=== PATIENT | female | born 1985 | race Caucasian/White ===

== ENCOUNTER 2023-11-22 17:09 | Outpatient (CLI) | payer BC, SELFPAY | END 2023-11-22 17:10 | disposition home or self-care (01) | PROVIDERS: PCP Nurse Practitioner Family; Visit Provider Nurse Practitioner Family | DX: R53.83 Other fatigue (principal); M25.59 Pain in other specified joint | CPT/HCPCS: 80053; 82306; 84443; 85025; 85651; 86039; 86140; 86200; 86431; 86618; 86812 ==

== ENCOUNTER 2023-12-01 15:48 | Outpatient (CLI) | payer BC, SELFPAY ==
--- NOTE | 2023-12-01 16:00 | CRLHL7_ITS ---
For Patients: As a result of the Cures Act, medical imaging exams and procedure reports are released immediately into your electronic medical record. You may view this report before your referring provider. If you have questions, please contact your health care provider. INDICATION: Shoulder pain. FINDINGS: Three views of the right shoulder show no evidence of acute fracture or dislocation. No other bony or soft tissue abnormalities identified. Dictated by Enmanuel Santos MD @ 12/02/2023 2:36:24 PM (Electronically Signed)
--- NOTE | 2023-12-01 16:15 | CRLHL7_ITS ---
For Patients: As a result of the Cures Act, medical imaging exams and procedure reports are released immediately into your electronic medical record. You may view this report before your referring provider. If you have questions, please contact your health care provider. INDICATION: Hip pain. FINDINGS: A single frontal view of the pelvis along with 2 views of the right hip show no evidence of acute fracture or dislocation. The hip joints appear intact. No other bony or soft tissue abnormalities identified. Dictated by Enmanuel Santos MD @ 12/02/2023 2:37:13 PM (Electronically Signed)
== END 2023-12-01 15:49 | disposition home or self-care (01) ==
PROVIDERS: PCP Nurse Practitioner Family; Visit Provider Nurse Practitioner Family
DX: M25.511 Pain in right shoulder (principal); M25.551 Pain in right hip
CPT/HCPCS: 73030; 73502

== ENCOUNTER 2024-01-09 15:48 | Outpatient (CLI) | payer BC, SELFPAY ==
--- NOTE | 2024-01-09 16:00 | CRLHL7_ITS ---
For Patients: As a result of the Century Cures Act, medical imaging exams and procedure reports are released immediately into your electronic medical record. You may view this report before your referring provider. If you have questions, please contact your health care provider. INDICATION: menorrhagia COMPARISON: none TECHNIQUE: 2D farley scale and color Doppler images were acquired of the pelvis using a transabdominal and transvaginal approach. FINDINGS: Sonographic images demonstrate a normal size and smooth outer contour of the uterus. Uterus measures 8.0 cm in length by 4.4 cm in AP diameter by 5.1 cm in transverse dimension. The myometrium has a normal uniform echotexture. The endometrial lining appears normal and measures 7.4 mm in composite thickness. The right ovary measures 4.5 x 3.4 x 3.8 cm in size and the left ovary measures 3.5 x 1.7 x 1.7 cm. The ovaries demonstrate normal arterial and venous blood flow on color Doppler analysis. There are no suspicious fluid collections within the cul-de-sac. Simple anechoic right ovarian cyst measuring 3.0 x 2.6 x 2.8 cm. IMPRESSION: Endometrial thickness 7.4 millimeters. Simple cyst right ovary measures 3.0 cm Dictated by Sergo Hernandez MD @ 01/10/2024 10:24:11 AM (Electronically Signed)
== END 2024-01-09 15:49 | disposition home or self-care (01) ==
LOC: US 15:49
PROVIDERS: PCP Nurse Practitioner Family; Visit Provider Nurse Practitioner Family
DX: N92.0 Excessive and frequent menstruation with regular cycle (principal); R93.89 Abnormal findings on diagnostic imaging of other specified body structures; N83.201 Unspecified ovarian cyst, right side
CPT/HCPCS: 76830; 76856

== ENCOUNTER 2024-01-18 14:50 | Outpatient (CLI) | payer BC, SELFPAY ==
[2024-01-21 05:19] LABS: HPV Source Cervix; HPV, High Risk by TMA Not Detected
== END 2024-01-18 14:51 | disposition home or self-care (01) ==
PROVIDERS: PCP Nurse Practitioner Family; Visit Provider Registered Nurse
DX: N92.0 Excessive and frequent menstruation with regular cycle (principal); Z12.4 Encounter for screening for malignant neoplasm of cervix; Z01.818 Encounter for other preprocedural examination
CPT/HCPCS: 87624; 87625; 88141; 88142

== ENCOUNTER 2024-09-30 12:15 | Outpatient (CLI) | payer BC, SELFPAY | END 2024-09-30 12:16 | disposition home or self-care (01) | PROVIDERS: PCP Nurse Practitioner Family; Visit Provider Physician Assistant Surgical | DX: R10.9 Unspecified abdominal pain (principal) | CPT/HCPCS: 87086 ==

== ENCOUNTER 2024-10-01 17:08 | Emergency (ER) | payer BC, SELFPAY ==
--- OUTSIDE RECORDS SUMMARY | 2024-10-01 17:10 | XMS_ITS | Encounter Summary ---
Author Organization [facility] Address [address] [place] [id number] Care Team Providers Care Model And Dye Person Name Role Phone Alisa Jones MD Primary Care Provider [facility] Kaila Byrd MD Primary Care Provider Reason for Referral * Diagnostic Imaging Ultrasound - Closed Specialty Diagnoses / Procedures Referred By Contac t Referred To Contact Diagnoses related condition, antepartum Procedures [facility] US Comprehensive Single Alisa Jones MD Referral ID Status Reason Start Date Expiration Date Visits Re quested Visits Authorized [id number] Closed 02/22/2018 02/22/2019 1 1 IN STATION OPERATOR * - Closed Specialty Diagnoses / Procedures Referred By Contac t Referred To Contact Diagnoses related condition, antepartum Alisa Jones MD Referral ID Status Reason Start Date Expiration Date Visits Re quested Visits Authorized [id number] Closed 02/22/2018 02/22/2019 1 1 Comments Positive [id number] IN STATION OPERATOR * - Closed Specialty Diagnoses / Procedures Referred By Contac t Referred To Contact Diagnoses related condition, antepartum Alisa Jones MD Referral ID Status Reason Start Date Expiration Date Visits Re quested Visits Authorized [id number] Closed 02/22/2018 02/22/2019 1 1 Question Answer [facility] Location [facility] HAN 07/01/2018 Ultrasound Comprehensive US (>than 18 weeks GA) US PROC NONE [facility] Issue Abnormal Genetic Screening(details in Comments)*MUST request Genetic Counseling - Positive [id number] Genetic Counseling Consultation: Yes fax [phone], [facility], Dr. Alisa Jones Comments There is no height or weight on file to calculate BMI. >> Patient may proceed with recommendations for further testing as directed by the Maternal Medicine Specialist >> >> If requesting Echo: MFM will determine appropriate location for exam due to indication. >> If requesting Lung Maturity Amnio: If results indicate lung maturity, induction or C/S is recommended within 36 hours. Please schedule accordingly. Dear Patient: Please be aware that coverage of these services is subject to the terms and limitations of your health insurance plan. Call member services at your health plan with any benefit or coverage questions. Please bring the following to your appointment: >> Any x-rays, CTs or MRIs which have been performed. Contact the facility where they were done to arrange for garbage pick up worker prior to your scheduled appointment. Any new CT, MRI or other procedures ordered by your specialist must be performed at a [facility] facility or coordinated by your clinic's referral office. >> List of current medications >> This referral request >> Any documents/labs given to you for this referral IN STATION OPERATOR Encounter Details Date Type Department Care Team (Latest Contact Info) Description 02/22/2018 Transcribe Orders [facility] [address] [place] [id number] Alisa Jones MD related condition, antepartum (Primary Dx) Social History Tobacco Use Types Packs/Day Years Used Date Smoking Tobacco: Never Assessed Comments Yes Sex and Gender Information Value Date Recorded Sex Assigned at Not on file Legal Sex Female 2:08 PM CUT IN STATION OPERATOR Gender Identity Not on file Sexual Orientation Not on file documented as of this encounter Plan of Treatment Scheduled Referrals Name Type Priority Associated Diagnoses Orde r Schedule MAT MED CTR REFERRAL- Referral Routine related condition, antepartum Ordered: 02/22/2018 [facility] Genetic Counseling Referral Routine related condition, antepartum 1 Occurrences starting 02/22/2018 until 02/23/2019 documented as of this encounter Results * [facility] US Comprehensive Single (02/24/2018 11:58 AM CUT IN STATION OPERATOR) Anatomical Region Laterality Modality Ultrasound 02/24/2018 10:1 8 AM CUT IN STATION OPERATOR Impressions 02/24/2018 4:35 PM CUT IN STATION OPERATOR IMPRESSION ----- 1) Lacey intrauterine at 21 & 6/7 weeks gestational age. 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 - there is cerebral ventricular asymmetry with the left lateral ventricle measuring at the upper limit of normal (8.6 mm, was 10.9 mm with suboptimal positioning) - the nuchal fold is mildly thickened - the nasal bone is absent - there is an echogenic intracardiac focus - the semilunar valves do not appear normally offset - there is a possible septal defect - there is tricuspid regurgitation - there is kyphoscoliosis of the lumbar spine - the feet do not have a classic clubbed appearance, but were abnormally internally rotated for much of the examination 3) Other visualized anatomy appears within normal limits. 4) Growth parameters and estimated weight were consistent with established dates. 5) The amniotic fluid volume is the upper limit of normal. 6) Normal activity for gestational age. 7) On transabdominal imaging the cervix appears long and closed. Narrative 02/24/2018 4:35 PM CUT IN STATION OPERATOR Comprehensive ----- Pat. Name: SIMRAN MAYBERRY Study Date: 02/24/2018 10:18am Pat. NO: [id number] Referring MD: ALSIA JONES Site: [facility] Firearms Inspector: Uyen Sam RDMS : 1985 Age: 33 ----- INDICATION ----- Cell Free Positive for Trisomy 21 METHOD ----- Transabdominal ultrasound examination. View: Sufficient ----- Lacey . Number of fetuses: 1 DATING ----- Date Details Gest. age HAN LMP 09/24/2017 21 w + 6 d 07/01/2018 Prior assessment 11/08/2017 GA: 6 w + 2 d 21 w + 5 d 07/02/2018 U/S 02/24/2018 based upon AC, BPD, Femur, HC 22 w + 2 d 06/28/2018 Assigned dating Dating performed on 02/24/2018, based on the LMP 21 w + 6 d 07/01/2018 GENERAL EVALUATION ----- Cardiac activity present. FHR 155 bpm. movements present. Presentation Variable. Placenta anterior, no previa . Umbilical cord 3 vessel cord. Amniotic fluid Amount of AF: normal. MVP 7.2 cm. BIOMETRY ----- Main Biometry: BPD 53.2 mm 22w 1d Hadlock OFD 69.3 mm 21w 4d Nicolaides HC 194.7 mm 21w 5d Hadlock Cerebellum tr 24.7 mm 22w 5d Nicolaides AC 177.7 mm 22w 5d Hadlock Femur 38.9 mm 22w 3d Hadlock Humerus 34.3 mm 21w 5d Gordon Weight Calculation: EFW 507 g EFW (lb,oz) 1 lb 2 oz EFW by Rach ([id number]) Head / Face / Neck Biometry: Firestop/Containment Worker 9.3 mm CM 6.9 mm Nuchal fold 6.0 mm ANATOMY ----- Head / Neck Left lateral ventricle: large compared to the right Spine Lumbar spine: kyphoscoliosis Extremities / Skeleton Right foot: irregular position Left foot: irregular position The following structures appear abnormal: Head / Neck Cerebellum: splaying. Vermis: splaying of the vermis. Nuchal fold: thickened. Face Nose: Absent nasal bone. Heart / Thorax 4-chamber view: AV valves appear linear. EIF left ventricle. Tricuspid regurgitation.. The following structures appear normal: Head / Neck Cranium. Head size. Head shape. Right lateral ventricle. Choroid plexus. Midline falx. Cavum septi pellucidi. Cisterna magna. Parenchyma. Thalami. Neck. Face Lips. Profile. Maxilla. Mandible. Orbits. Lens. Heart / Thorax RVOT view. LVOT view. Situs. Aortic arch view. Bicaval view. Ductal arch view. 3-vessel view. 2-rcczwp-dezciqt view. Cardiac position. Cardiac size. Cardiac rhythm. Right lung. Left lung. Diaphragm. Abdomen Abdominal wall. Cord insertion. Stomach. Kidneys. Bladder. Liver. Bowel. Genitals. Spine Cervical spine. Thoracic spine. Sacral spine. Extremities / Skeleton Right hand. Left hand. Gender: female. MATERNAL STRUCTURES ----- Cervix Visualized Appearance: Appears Closed Cervical length 40.1 mm Right Ovary Not visualized Left Ovary Not visualized INVASIVE PROCEDURES ----- Amniocentesis Instrument: 22-gauge. Method: transplacental. Entries uterus: 1 Sample: obtained. Sample amount 32 ml. Sample quality: clear yellow Sample identification confirmed After informed consent was obtained and Time Out completed, the patient was prepped in the usual fashion. 32 cc of clear yellow fluid was obtained via a single trans-placental insertion of a 22-gauge needle under direct continuous ultrasound guidance. Fluid will be sent for FISH, karyotype and AFAFP with a plan to perform microarray if the karyotype is normal. Normal cardiac activity was confirmed after the procedure. The results of these tests will be forwarded to you as soon as they become available. The patient is Rh positive. Evaluation Post cardiac activity: present, normal. FHR post 155 bpm Uncomplicated procedure CONSULTATION ----- Dear Dr. Dr. Jones, Thank-you for referring your patient for a Maternal- Medicine consultation due to abnormal cell free DNA predicting a high likelihood for trisomy 21 as well as abnormal ultrasound findings. As you know, Ms. Mayberry is a 33 year-old 4 para 2011 at 21 & 6/7 weeks by LMP consistent with first trimester ultrasound. She is here today due to cell-free DNA screening showing an abnormal amount of chromosome 21, but the expected amounts of chromosomes 18 & 13. Ms. Mayberry also met with our genetic counselor. On today's ultrasound there are several markers for trisomy 21 as well as several structural malformations. We reviewed each of these ultrasound findings. We reviewed the presumptive diagnosis of trisomy 21. We reviewed the need for formal echocardiogram and continued evaluation of the anatomy. We may pursue MRI later in for further evaluation of the neuroanatomy. After counseling the couple opted for invasive testing for definitive diagnosis; she is aware of the 1/400 risk of complication, including loss with this testing. Ms. Mayberry is not planning to pursue termination of regardless of the amniocentesis results, but wanted a definitive diagnosis. We were able to arrange a echocardiogram for this afternoon, but Ms. Mayberry was overwhelmed and preferred to scheduled it later. At her request, a echocardiogram is scheduled in three weeks. At that same time we are scheduling an [facility] follow-up to reassess anatomy and growth. Much emotional support was provided to the couple today. I spent a total of 30 minutes face-to -face with Ms. Mayberry. More than 50% of the time was spent in patient counseling and/or coordination of care regarding her abnormal ultrasound findings. RECOMMENDATION ----- Thank-you for referring your patient for a targeted ultrasound. Please see above consultation section. Return to primary provider for continued care. If you have questions regarding today's evaluation or if we can be of further service, please contact the Maternal- Medicine Center. anomalies may be present but not detected Procedure Note Loulou Coulter MD - 02/24/2018 Comprehensive ----- Pat. Name:Kaylie MAYBERRY Date:02/24/2018 10:18am Pat. NO: [id number] MD:ALISA JONES [facility] EREN Sam :1985Age:33 ----- INDICATION ----- Cell Free Positive for Trisomy 21 METHOD ----- Transabdominal ultrasound examination. View: Sufficient ----- Lacey . Number of fetuses: 1 DATING ----- DateDetailsGest. age HAN LMP 09/24/201721 w + 6 d 07/01/2018 Prior assessment 11/08/2017 GA: 6 w +2 d21 w + 5 d 07/02/2018 U/S 02/24/2018based upon AC, BPD, Femur, HC22 w + 2 d 06/28/2018 Assigned dating Dating performed on 02/24/2018, based onthe LMP 21 w +6 d 07/01/2018 GENERAL EVALUATION ----- Cardiac activity present. FHR 155 bpm. movements present. Presentation Variable. Placenta anterior, no previa . Umbilical cord 3 vessel cord. Amniotic fluid Amount of AF: normal. MVP 7.2 cm. BIOMETRY ----- Main Biometry: BPD 53.2 mm22w 1d Hadlock OFD 69.3 mm21w 4d Nicolaides HC 194.7 mm21w 5d Hadlock Cerebellum tr 24.7 mm22w 5d Nicolaides AC 177.7 mm22w 5d Hadlock Femur 38.9 mm22w 3d Hadlock Humerus 34.3 mm21w 5d Gordon Weight Calculation: EFW 507 g EFW (lb,oz) 1 lb 2 oz EFW by Hadlock ([id number]) Head / Face / Neck Biometry: Firestop/Containment Worker 9.3 mm CM 6.9 mm Nuchal fold 6.0 mm ANATOMY ----- Head / Neck Left lateral ventricle: large comparedto the right Spine Lumbar spine: kyphoscoliosis Extremities / Skeleton Right foot: irregular position Left foot: irregular position The following structures appear abnormal: Head / Neck Cerebellum: splaying. Vermis: splayingof the vermis. Nuchal fold: thickened. Face Nose: Absent nasal bone. Heart / Thorax 4-chamber view: AV valves appearlinear. EIF left ventricle. Tricuspid regurgitation.. The following structures appear normal: Head / Neck Cranium. Head size. Head shape. Rightlateral ventricle. Choroid plexus. Midline falx. Cavum septi pellucidi.Cisterna magna. Parenchyma. Thalami. Neck. Face Lips. Profile. Maxilla. Mandible.Orbits. Lens. Heart / Thorax RVOT view. LVOT view. Situs. Aorticarch view. Bicaval view. Ductal arch view. 3-vessel view. [id number]. Cardiac position. Cardiac size. Cardiac rhythm. Right lung. Left lung.Diaphragm. Abdomen Abdominal wall. Cord insertion.Stomach. Kidneys. Bladder. Liver. Bowel. Genitals. Spine Cervical spine. Thoracic spine.Sacral spine. Extremities / Skeleton Right hand. Left hand. Gender: female. MATERNAL STRUCTURES ----- Cervix Visualized Appearance: Appears Closed Cervical length 40.1 mm Right Ovary Not visualized Left Ovary Not visualized INVASIVE PROCEDURES ----- Amniocentesis Instrument: 22-gauge. Method:transplacental. Entries uterus: 1 Sample: obtained. Sample [id number] ml. Sample quality: clear yellow Sample identificationconfirmed After informed consent wasobtained and Time Out completed, the patient was prepped in the usualfashion. 32 cc of clear yellow fluid was obtained via a singletrans-placental insertion of a 22-gauge needle under direct continuousultrasound guidance. Fluid will be sent for FISH, karyotype and AFAFP with a RIWI perform microarray if the karyotype is normal. Normal cardiac activitywas confirmed after the procedure. The results of these tests willbe forwarded to you as soon as they become available. The patient is Rhpositive. Evaluation Post cardiac activity: present,normal. FHR post 155 bpm Uncomplicated procedure CONSULTATION ----- Dear Dr. Dr. Jones, Thank-you for referring your patient for a Maternal- Medicineconsultation due to abnormal cell free DNA predicting a high likelihoodfor trisomy 21 as well as abnormal ultrasound findings. As you know, Ms. Mayberry is a 33 year-old 4 para 2011 at 21 & 6/7weeks by LMP consistent with first trimester ultrasound. She is here todaydue to cell-free DNA screening showing an abnormal amount of chromosome 21, but the expectedamounts of chromosomes 18 & 13. Ms. Mayberry also met with our geneticcounselor. On today's ultrasound there are several markers for trisomy 21 as well asseveral structural malformations. We reviewed each of these ultrasoundfindings. We reviewed the presumptive diagnosis of trisomy 21. We reviewed the need for formalechocardiogram and continued evaluation of the anatomy. We maypursue MRI later in for further evaluation of the neuroanatomy. After counseling the couple opted for invasive testing for definitivediagnosis; she is aware of the 1/400 risk of complication, includingpregnancy loss with this testing. Ms. Mayberry is not planning to pursue termination of regardless of theamniocentesis results, but wanted a definitive diagnosis. We were able to arrange a echocardiogram for this afternoon, but was overwhelmed and preferred to scheduled it later. At her request,a echocardiogram is scheduled in three weeks. At that same time we arescheduling an [facility] follow-up to reassess anatomy and growth. Much emotional support was provided to the couple today. I spent a total of 30 minutes face-to -face with Ms. Mayberry. More than 50%of the time was spent in patient counseling and/or coordination of careregarding her abnormal ultrasound findings. RECOMMENDATION ----- Thank-you for referring your patient for a targeted ultrasound. Please see above consultation section. Return to primary provider for continued care. If you have questions regarding today's evaluation or if we can be offurther service, please contact the Maternal- Medicine Center. anomalies may be present but not detected IMPRESSION ----- 1) Lacey intrauterine at 21 & 6/7 weeks gestational age. 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 - there is cerebral ventricular asymmetry with the left lateral ventriclemeasuring at the upper limit of normal (8.6 mm, was 10.9 mm withsuboptimal positioning) - the nuchal fold is mildly thickened - the nasal bone is absent - there is an echogenic intracardiac focus - the semilunar valves do not appear normally offset - there is a possible septal defect - there is tricuspid regurgitation - there is kyphoscoliosis of the lumbar spine - the feet do not have a classic clubbed appearance, but were abnormallyinternally rotated for much of the examination 3) Other visualized anatomy appears within normal limits. 4) Growth parameters and estimated weight were consistent withestablished dates. 5) The amniotic fluid volume is the upper limit of normal. 6) Normal activity for gestational age. 7) On transabdominal imaging the cervix appears long and closed. us Alisa Jones MD [facility] US ORDERABLES Edited Res ult - Final documented in this encounter Visit Diagnoses Diagnosis related condition, antepartum- Primary related condition, antepartum documented in this encounter Care Teams Model And Dye Person Relationship Specialty Start Date End Date Alisa Jones MD PCP - General global program manager 02/24/18 05/11/18 Kaila Suggs MD PCP - General global program manager 05/12/18 documented as of this encounter
--- OUTSIDE RECORDS SUMMARY | 2024-10-01 17:10 | XMS_ITS | Clinical Summary ---
Author Organization [facility] Address [address] [place] [id number] Care Team Providers Care Investigator Claims Name Role Phone Kaila Suggs MD Primary Care Provider Allergies Active Allergy Reactions Criticality Noted Date Comments Citalopram Nausea 05/15/2018 Sulfa Antibiotics Swelling 09/28/2010 Eye swelling Medications MV-Min-Fe Fum-FA-DHA ( 1 PO) Take 1 tablet by mouth daily Active Calcium Carbonate Antacid (TUMS PO) Active acetaminophen (TYLENOL) 325 MG tabletIndicatio ns:Delivery of by section Take 2 tablets (650 mg) by mouth every 6 hours as needed for mild pain Start after Delivery. 100 tablet 06/20/2018 Active ibuprofen (ADVIL/MOTRIN) 600 MG tabletIndicatio ns:Delivery of by section Take 1 tablet (600 mg) by mouth every 6 hours as needed for moderate pain Start after delivery 60 tablet 06/20/2018 Active senna-docusate (SENOKOT-S/CARLENE COLACE) 8.6-50 MG tabletIndicatio ns:Delivery of by section Take 1 tablet by mouth daily Start after delivery. 100 tablet 06/20/2018 Active Active Problems Patient Care Coordination No te Formatting of this note is d ifferent from the original. [facility] Care Plan: For details of imaging, genetic testing and consultations, please see the maternal medical record: Simran Solis MR#:[id number] DIAGNOSIS: DIAGNOSIS / DIAGNOSES: 1) Trisomy 21 - there is cerebral ventricular asymmetry with the left lateral ventricle measuring at the upper limit of normal. 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 - there is a possible septal defect - there is kyphoscoliosis of the lumbar spine - the feet do not have a classic clubbed appearance, but were flexed. GENETIC (and other) TESTIN) NIPT + T21 2) Amniocentesis: 47, XX, +21 (02/24) PERTINENT MATERNAL CONDITIONS: 1) Term x2 (2014, 2016) 2) D&C x2 MAB (07/2015) DEMOGRAPHICS: Patient contact info: [phone] [phone] (home) Partner's name: Jenaro Baby's name: Baby girl Siria Siblings: Joni and Alex REFERRING PROVIDER(S): 1) Primary OB Provider: Dr. Kaila Suggs [facility] [address] [facility] [phone] 2) Other Sub-Specialty Provider: 3) Anticipated Pediatric Provider: CARE PLAN: 1) Ultrasounds - serial growth 06/19 2) Other Imaging - echo (03/22/18) WNL- echo recommended 3) surveillance - weekly BPP with PCP 4) Relocation - NA 5) care with - [facility] to [facility] 05/15 6) Labs - (look in media tab / care everywhere for results) Blood type: O+ HepBSAg: neg Rubella: immune RPR: NR HIV: neg GCT: 108 (04/24) 7) care team and consultations - A) Genetic Counselor - Jhonny Ontiveros B) Neonatology - 05/15 C) Social Work - 05/15 D) DELIVERY PLAN: 1) Hospital - [facility] 2) Gestational age - term 3) Route - 4) Notifications in labor - 5) Specimen collection in labor / at delivery - s/p amniocentesis 02/24/18 BABY PLAN: 1) Baby- plan to go to [facility] 2) Imaging to be done - A) immediately after - B) prior to hospital discharge - post echo and cranial US C) after discharge from the hospital - 3) Consults to be done - A) immediately after - B) prior to hospital discharge - C) after discharge from the hospital - 4) Medications - Last updated: June 19, 2018 Problem Noted Date Diagnosed Date Encounter for triage in patient 019 Delivery of by section 2018 Immunizations Immunization Administration Dates Next Due Influenza Vaccine >6 months,LOGAN sage 01/17/2018 Social History Tobacco Use Types Packs/Day Years Used Date Smoking Tobacco: Light Smoker Smokeless Tobacco: Never Alcohol Use Standard Drinks/Week Comments No 0 (1 standard drink = 0.6 oz pur e alcohol) AUDIT-C Answer Date Recorded Frequency of Alcohol Consumption Never 05/15/2018 Average Number of Drinks Not on file 019 Frequency of Binge Drinking Not on file 04/28 [place] Depression Scale Answer Date Recorded [place] Depression Score 5 06/20/2018 Last EPDS Self Harm Result Not on file 06/20 Comments No Sex and Gender Information Value Date Recorded Sex Assigned at Not on file 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 Gender Identity Not on file Sexual Orientation Not on file Last Filed Vital Signs Vital Sign Reading Time Taken Comments Blood Pressure 111/72 06/22/2018 8:00 AM CDT Pulse 89 06/22/2018 8:00 AM CDT Temperature 36.6 C (97.8 F) 06/22/2018 8:00 AM CDT Respiratory Rate 15 06/22/2018 8:00 AM CDT Oxygen Saturation 100% 06/20/2018 4:00 PM CDT Inhaled Oxygen Concentration - - Weight 88 kg (194 lb) 06/19/2018 3:30 PM CDT Height 172.7 cm (5' 8) 06/19/2018 3:30 PM CDT Body Mass Index 29.5 06/19/2018 3:30 PM CDT Plan of Treatment Not on file Care Teams Investigator Claims Relationship Specialty Start Date End Date Kaila Suggs MD PCP - General regulatory attorney 05/12/18
[2024-10-01 17:14] VITALS: BP 120/85; PULSE 90; RESP 16; TEMP 36.6; O2SAT 97; BMI 32.4
--- NOTE | 2024-10-01 19:07 | CRLHL7_ITS ---
For Patients: As a result of the Century Cures Act, medical imaging exams and procedure reports are released immediately into your electronic medical record. You may view this report before your referring provider. If you have questions, please contact your health care provider. INDICATION: Flank pain. TECHNIQUE: CT abdomen and pelvis without contrast. COMPARISON: None. FINDINGS: Lower chest: Unremarkable. Liver: Normal in size and attenuation. No suspicious masses. Gallbladder and bile ducts: No stones or inflammation. No biliary dilatation. Pancreas: Unremarkable. No mass or inflammation. Spleen: Normal in size. No masses. Adrenal glands: Normal in size. No nodules. Kidneys: Normal in size. No suspicious masses, stones, or hydronephrosis. GI tract: Diverticulosis without pericolonic inflammation. No obstruction. Normal appendix. Vasculature: Abdominal aorta is normal in caliber. Lymph nodes: No lymphadenopathy. Peritoneum/Abdominal Wall: Unremarkable. No free air or significant free fluid. Pelvis: Unremarkable. No pelvic masses. Bones: Unremarkable for age. IMPRESSION: 1. No acute findings within the abdomen and pelvis. No urolith or evidence of obstructive uropathy. 2. Colonic diverticulosis without evidence for acute diverticulitis. Please note that all CT scans at this facility use dose modulation, iterative reconstruction, and/or weight-based dosing when appropriate to reduce radiation dose to as low as reasonably achievable. Dictated by Jack Elmore MD @ 10/01/2024 7:58:12 PM (Electronically Signed)
--- NOTE | 2024-10-01 19:08 | ED_ITS ---
HPI - General Adult General Chief complaint: Flank Pain Stated complaint: joanne stone Time Seen by Provider: 10/01/24 19:00 History of Present Illness HPI narrative: This 39-year-old female comes in because of left-sided low back pain that has been present for the past couple days. She went to urgent care yesterday and had labs and urinalysis obtained. These showed normal findings. She was instructed to come here if not improving or worsening. She was told it might be a kidney stone. The patient has not ever had a kidney stone in the past. She does not report any nausea. She states that her pain seems to be a bit relieved if she is remaining still. She does not report any abdominal pain or dysuria symptoms. She has not had any recent injury event or strenuous activity. Related Data Previous Rx's ?Medication ?Instructions ?Recorded sertraline 100 mg tablet (Zoloft) 100 mg PO QDAY #90 t abs 12/30/23 Allergies Allergy/AdvReac Type Severity Reaction Status Date / Time Sulfa (Sulfonamide Allergy Mild Swelling Verified 10/01/24 17:18 Antibiotics) of the Eye citalopram AdvReac Unknown Nausea Verified 10/01/24 17:18 Review of Systems Status of ROS: Reports: 10 or more systems reviewed and unremarkable except as noted in History and below Narrative: Constitutional: No fevers, no weight gain or loss. Eyes: No discharge. No vision changes. HENT: No congestion, no sore throat, no ear pain. Cardiovascular: No chest pain, no palpitations. Respiratory: No shortness of breath, no wheezes, no cough. Gastrointestinal: No abdominal pain, no vomiting, no diarrhea. Genitourinary: No dysuria, no hematuria. Musculoskeletal: Normal range of motion. Left-sided low back pain as described above. Skin: No rashes, no pruritis. Neurological: No dizziness, weakness, sensory change, speech change. Endo/Heme/Allergies: No bruising or bleeding. No polydipsia. Pysch: no suicidality, no anxiety, no insomnia. All other systems reviewed and are negative. [facility] Medical History History of vaginal delivery Brain bleed (~2009) ?I61.9 - Nontraumatic intracerebral hemorrhage, unspecified (ICD-10) Surgical History History of mandibular surgery (2008) ?Z98.890 - Other specified postprocedural states (ICD-10) History of foot surgery (2012) ?Z98.890 - Other specified postprocedural states (ICD-10) History of dilation and curettage (05/22/15) ?Z98.890 - Other specified postprocedural states (ICD-10) History of section (06/19/18) ?Z98.891 - History of uterine scar from previous surgery (ICD-10) Family History Mother Breast cancer Lung cancer Alcohol dependence Father Prostate cancer Lupus Alcohol dependence Social History Smoking Status: Current every day smoker Do you use any of these nicotine containing products: None How often do you have a drink containing alcohol: never AUDIT-C Alcohol total score: 0 Non-prescribed substance use: denies use Exam Narrative: Exam Narrative: Constitutional: Well-developed, well-nourished, no acute distress. HEENT: Normocephalic, atraumatic. Neck: Normal range of motion. Nontender. Supple. Heart: Regular. No murmurs. Normal rate. Intact distal pulses. Lungs: Clear to auscultation. No chest discomfort. No wheezes, rhonchi, or rales. Abdomen: Normal bowel sounds. Nontender. No rebound tenderness. Genitalia: Deferred. Back: No midline tenderness. Normal range of motion. Pain is located in the left low back along the belt line. Pain does not radiate down her leg. Extremities: Normal range of motion. No injury. Skin: Intact. No rash. Warm. No erythema or pallor. Neurologic: No altered sensation. No weakness. Alert and oriented. Psychiatric: No suicidality. No anxiety or depression. No insomnia. Nursing notes and vitals signs are reviewed. Const: Vital Signs, click to edit/add: Vital Signs - 24 hr 10/01/24 17:14 10/01/24 19:12 Temperature 97.9 F Pulse Rate [Pulse Oximeter] 90 82 Respiratory Rate 16 16 Blood Pressure [Ri ght Upper Arm] 120/85 118/61 Pulse Oximetry 97 97 Oxygen Delivery Me thod Room Air Room Air Course Vital Signs Vital signs: Initial Vital Signs Temperature 97.9 F 10/01/24 17:14 Temperature Source Temporal Artery Scan 10/01/24 17:14 Pulse Rate 90 10/01/24 17:14 Pulse Rhythm Regular 10/01/24 17:14 Respiratory Rate 16 10/01/24 17:14 Blood Pressure 120/85 10/01/24 17:14 Blood Pressure Mean 96 10/01/24 17:14 Blood Pressure Position Sitting 10/01/24 17:14 Pulse Oximetry 97 10/01/24 17:14 Oxygen Delivery Method Room Air 10/01/24 17:14 Vital Signs Temperature 97.9 F 10/01/24 17:14 Pulse Rate 90 10/01/24 17:14 Respiratory Rate 16 10/01/24 17:14 Blood Pressure 120/85 10/01/24 17:14 Pulse Oximetry 97 10/01/24 17:14 Oxygen Delivery Method Room Air 10/01/24 17:14 Temperature 97.9 F 10/01/24 17:14 Pulse Rate 82 10/01/24 19:12 Respiratory Rate 16 10/01/24 19:12 Blood Pressure 118/61 10/01/24 19:12 Pulse Oximetry 97 10/01/24 19:12 Oxygen Delivery Method Room Air 10/01/24 19:12 Medical Decision Making MDM Narrative Medical decision making narrative: This patient comes in with left-sided low back pain. A CT scan of her abdomen and pelvis is obtained and shows no findings to explain her pain. Urinalysis also is negative. The patient saw her results on a portal and decided to leave before I could follow-up with results and make a plan going forward. Lab Data Labs: Lab Results 10/01/24 Range/Units 19:15 Urine Color Yellow (Yellow) Urine Appearance Turbid A (Clear) Urine pH 5.5 (5.0-8.5) Ur Specific [place] 1.025 (1.000-1.030) Urine Protein Negative (Negative) Urine Glucose (UA) Negative (Negative) Urine Ketones Trace A (Negative) Urine Blood Negative (Negative) Urine Nitrite Negative (Negative) Urine Bilirubin Negative (Negative) Urine Urobilinogen 0.2 (0.2-1.0) Ur Leukocyte Esterase Negative (Negative) Urine RBC 0-2 (0-2) Urine WBC 0-2 (0-5) Ur Squamous Epith Cells Many A (None-Few) Amorphous Sediment Moderate A (None) Urine Bacteria Few A (None) Imaging Data CT scan - abdomen: Radiologist's impression: 1. No acute findings within the abdomen and pelvis. No urolith or evidence of obstructive uropathy. 2. Colonic diverticulosis without evidence for acute diverticulitis. Discharge Plan Discharge Clinical Impression: Back pain Patient Disposition: Home, Self-Care Condition: Stable Additional Instructions: Use [id number] medicines as needed and directed. Follow up with MD or return if worsening. Prescriptions: No Action sertraline [Zoloft] 100 mg tablet 100 mg PO QDAY Qty: 90 3RF Follow Up/Referrals: Norma Alston, MAINTENANCE PARTS TECHNICIAN, DELIVERY COORDINATOR [Primary Care Provider, Family Practice] Stand Alone Forms: [employer] Info Instructions
[2024-10-01 19:12] VITALS: BP 118/61; PULSE 82; RESP 16; O2SAT 97
[2024-10-01 19:31] LABS: Appearance Urine Turbid (Clear)
== END 2024-10-01 21:18 | disposition home or self-care (01) ==
PROVIDERS: Emergency Provider Emergency Medicine Emergency Medical Services; PCP Nurse Practitioner Family
DX: M54.50 Low back pain, unspecified (principal)
CPT/HCPCS: 74176; 81001; 87086; 99284